=== PATIENT | male | born 1960 | race Two or more races ===

== ENCOUNTER 2020-08-04 07:27 | Day surgery (SDC) | payer OTHER | END 2020-08-04 13:10 | disposition home or self-care (01) | LOC: AMB-ENDOS 07:27 | PROVIDERS: ATTEND Colon & Rectal Surgery | DX: D12.3 Benign neoplasm of transverse colon (principal); K64.1 Second degree hemorrhoids; Z20.828 Contact with and (suspected) exposure to other viral communicable diseases ==